=== PATIENT | female | born 1990 | race Two or more races ===

== ENCOUNTER → 2023-04-15 08:02 | Outpatient (REF) | payer OTHER, SELFPAY | LOC: PNTC 08:02 | PROVIDERS: ATTENDING PHYSICIAN Obstetrics & Gynecology | DX: O30.009 Twin pregnancy, unspecified number of placenta and unspecified number of amniotic sacs, unspecified trimester (principal) | CPT/HCPCS: 76801; 76802; 76813; 76814 ==

== ENCOUNTER → 2023-05-29 09:01 | Outpatient (REF) | payer OTHER, SELFPAY | LOC: PNTC 09:01 | PROVIDERS: ATTENDING PHYSICIAN Obstetrics & Gynecology | DX: Z34.82 Encounter for supervision of other normal pregnancy, second trimester (principal) | CPT/HCPCS: 76805; 76810; 76820; 76821 ==

== ENCOUNTER → 2023-06-12 09:00 | Outpatient (REF) | payer OTHER, SELFPAY | LOC: PNTC 09:00 | PROVIDERS: ATTENDING PHYSICIAN Obstetrics & Gynecology | DX: O30.039 Twin pregnancy, monochorionic/diamniotic, unspecified trimester (principal) | CPT/HCPCS: 76815; 76820; 76821 ==

== ENCOUNTER → 2023-06-30 13:32 | Outpatient (REF) | payer OTHER, SELFPAY | LOC: PNTC 13:32 | PROVIDERS: ATTENDING PHYSICIAN Obstetrics & Gynecology | DX: O30.039 Twin pregnancy, monochorionic/diamniotic, unspecified trimester (principal) | CPT/HCPCS: 76811; 76812; 76820; 76821 ==

== ENCOUNTER → 2023-07-09 11:48 | Outpatient (REF) | payer OTHER, SELFPAY | LOC: PNTC 11:48 | PROVIDERS: ATTENDING PHYSICIAN Obstetrics & Gynecology | DX: O36.8190 Decreased fetal movements, unspecified trimester, not applicable or unspecified (principal); O30.049 Twin pregnancy, dichorionic/diamniotic, unspecified trimester | CPT/HCPCS: 76815 ==

== ENCOUNTER → 2023-07-14 14:30 | Outpatient (REF) | payer OTHER, SELFPAY | LOC: PNTC 14:30 | PROVIDERS: ATTENDING PHYSICIAN Obstetrics & Gynecology | DX: O30.039 Twin pregnancy, monochorionic/diamniotic, unspecified trimester (principal) | CPT/HCPCS: 76815; 76820; 76821 ==

== ENCOUNTER → 2023-07-29 14:21 | Outpatient (REF) | payer OTHER, SELFPAY | LOC: PNTC 14:21 | PROVIDERS: ATTENDING PHYSICIAN Obstetrics & Gynecology | DX: O30.039 Twin pregnancy, monochorionic/diamniotic, unspecified trimester (principal); O14.00 Mild to moderate pre-eclampsia, unspecified trimester | CPT/HCPCS: 76816; 76820; 76821 ==

== ENCOUNTER → 2023-08-12 08:52 | Outpatient (REF) | payer OTHER, SELFPAY | LOC: PNTC 08:52 | PROVIDERS: ATTENDING PHYSICIAN Obstetrics & Gynecology | DX: O30.039 Twin pregnancy, monochorionic/diamniotic, unspecified trimester (principal); Z36.82 Encounter for antenatal screening for nuchal translucency | CPT/HCPCS: 76815; 76820; 76821 ==

== ENCOUNTER → 2023-08-26 09:27 | Outpatient (REF) | payer OTHER, SELFPAY | LOC: PNTC 09:27 | PROVIDERS: ATTENDING PHYSICIAN Obstetrics & Gynecology | DX: O30.039 Twin pregnancy, monochorionic/diamniotic, unspecified trimester (principal) | CPT/HCPCS: 76816; 76820; 76821 ==

== ENCOUNTER → 2023-09-09 13:49 | Outpatient (REF) | payer OTHER, SELFPAY | LOC: PNTC 13:49 | PROVIDERS: ATTENDING PHYSICIAN Obstetrics & Gynecology | DX: O30.039 Twin pregnancy, monochorionic/diamniotic, unspecified trimester (principal); O35.8XX0 Maternal care for other (suspected) fetal abnormality and damage, not applicable or unspecified | CPT/HCPCS: 59025; 76815; 76820; 76821 ==

== ENCOUNTER → 2023-09-16 13:56 | Outpatient (REF) | payer OTHER, SELFPAY | LOC: PNTC 13:56 | PROVIDERS: ATTENDING PHYSICIAN Obstetrics & Gynecology | DX: O30.039 Twin pregnancy, monochorionic/diamniotic, unspecified trimester (principal) | CPT/HCPCS: 59025; 76815 ==

== ENCOUNTER 2023-09-23 11:37 | Observation (INO) | payer OTHER, SELFPAY ==
[2023-09-23 11:45] VITALS: BP 148/100; BMI 30.1
[2023-09-23 12:42] LABS: Hematocrit 26.5 % (37.0-47.0); Hemoglobin 8.7 g/dL (12.0-16.0); Mean Corp Hgb Conc. 32.8 g/dL (33.0-37.0); Mean Corpuscular Hgb 28.1 pg (27.0-31.0); Mean Corpuscular Volume 85.5 fL (81.0-99.0); Mean Platelet Volume 12.9 fL (7.4-10.4); Platelet Count 130 10^3/uL (130-400); Red Cell Dist. Width 14.4 % (11.5-14.5); White Blood Cell Count 7.9 10^3/uL (4.8-10.8)
[2023-09-23 13:25] LABS: Protein/creatinine Ratio 0.2; Urine Protein 53 mg/dl
[2023-09-23 13:42] LABS: ALT (SGPT) 16 U/L (0-35); AST (SGOT) 27 U/L (14-36); Albumin 3.1 g/dl (3.5-5.0); Alkaline Phosphatase 134 U/L (38-126); Blood Urea Nitrogen 10 mg/dl (7-17); Carbon Dioxide 23 mmol/L (22-30); Chloride 107 mmol/L (98-107); Estimated Creatinine Clearance 112 ml/min; Glucose 90 mg/dl (70-99); Potassium 4.6 mmol/L (3.5-5.1); Sodium 134 mmol/L (135-145); Total Bilirubin 0.4 mg/dl (0.2-1.3); Total Protein 5.7 g/dl (6.3-8.2); eGFR > 60.00
== END 2023-09-23 15:02 | disposition home or self-care (01) ==
LOC: LDRP 11:37
PROVIDERS: Obstetrics & Gynecology; ADMITTING PHYSICIAN Obstetrics & Gynecology
DX: O10.013 Pre-existing essential hypertension complicating pregnancy, third trimester (principal); O30.033 Twin pregnancy, monochorionic/diamniotic, third trimester; Z3A.34 34 weeks gestation of pregnancy; O99.013 Anemia complicating pregnancy, third trimester; D64.9 Anemia, unspecified; O99.113 Other diseases of the blood and blood-forming organs and certain disorders involving the immune mechanism complicating pregnancy, third trimester; D69.6 Thrombocytopenia, unspecified
CPT/HCPCS: 59025; 76816; 76820; 76821; 80053; 82570; 84156; 85027; 86850; 86900; 86901; G0378

== ENCOUNTER 2023-09-24 07:28 | Observation (INO) | payer OTHER, SELFPAY ==
[2023-09-24 08:14] VITALS: BP 127/85; BMI 30.1
[2023-09-24 08:18] LABS: ALT (SGPT) 17 U/L (0-35); AST (SGOT) 30 U/L (14-36); Albumin 3.1 g/dl (3.5-5.0); Alkaline Phosphatase 130 U/L (38-126); Blood Urea Nitrogen 8 mg/dl (7-17); Calcium 8.6 mg/dl (8.4-10.2); Carbon Dioxide 20 mmol/L (22-30); Chloride 108 mmol/L (98-107); Glucose 123 mg/dl (70-99); Potassium 3.9 mmol/L (3.5-5.1); Sodium 134 mmol/L (135-145); Total Bilirubin 0.5 mg/dl (0.2-1.3); Total Protein 5.7 g/dl (6.3-8.2); Uric Acid 5.8 mg/dl (2.5-6.2); eGFR > 60.00
[2023-09-24 08:18] LABS: Urine Albumin 1+ (Neg - Trace); Urine Bilirubin Negative (Negative); Urine Character Clear (Clear); Urine Color Yellow; Urine Glucose Negative (Negative); Urine Ketone Negative (Negative); Urine Leukocyte Negative (Negative); Urine Nitrite Negative (Negative); Urine Occult Blood Negative (Negative); Urine Urobilinogen Negative (Neg - 1+)
[2023-09-24 08:19] LABS: % Basophils 0.1 % (0-2); % Eosinophils 0.8 % (0-6); % Immature Granulocytes 0.7 % (0-0.5); % Lymphocytes 28.6 % (20.5-51.1); % Monocytes 5.4 % (1.7-9.3); % Neutrophils 64.4 % (42.2-75.2); Absolute Eosinophils 0.1 10^3/uL (0-0.7); Absolute Immature Granulocytes 0.1 10^3/uL (0-0.05); Absolute Lymphocytes 2.1 10^3/uL (1.2-3.4); Absolute Monocytes 0.4 10^3/uL (0.1-0.6); Absolute Neutrophils 4.6 10^3/uL (1.4-6.5); Hematocrit 27.4 % (37.0-47.0); Hemoglobin 8.8 g/dL (12.0-16.0); Mean Corp Hgb Conc. 32.1 g/dL (33.0-37.0); Mean Corpuscular Hgb 27.2 pg (27.0-31.0); Mean Corpuscular Volume 84.6 fL (81.0-99.0); Nucleated Red Blood Cells % 0.3 %; Red Blood Cell Count 3.24 10^6/uL (4.20-5.40); Red Cell Dist. Width 14.5 % (11.5-14.5); White Blood Cell Count 7.2 10^3/uL (4.8-10.8)
[2023-09-24 09:12] LABS: Urine Bacteria Moderate (Negative); Urine Mucus Moderate; Urine Red Blood Cell 0-2 /HPF (0-2); Urine Squamous Cell 26-30 /LPF (Few)
[2023-09-24 09:18] LABS: Platelet Count 104 10^3/uL (130-400)
[2023-09-24 09:19] LABS: Mean Platelet Volume 12.8 fL (7.4-10.4)
[2023-09-24 09:37] LABS: Protein/creatinine Ratio 1.2; Urine Protein 180 mg/dl
--- NOTE | 2023-09-24 09:56 | W.PN.UPDATE ---
Update Note
Progress Note Update
Patient at [facility] for NST for mono/di twins at 34+2wks, and pre-eclampsia. Had elevated BPs yesterday and was evaluated on L&D at that time. Labs were significant for slightly decreased urine pr:cr 1.2. Growth scan was done and twin A was breech,
weighing 2077gm, 36th percentile, and twin B was transverse, weighing 2159gm, 43rd percentile. Fluid normal. She was asked to stay for continued observation and BTMZ for FLM, but left AMA.
Today, I was called by the RN in [facility] because repeat labs today were significant for PLTs dropping from 130K yesterday to 104K today. Otherwise labs were stable/wnl. BPs were 126-143/83-93. Of note, pt was delivered at 31wks via for
'elevated BPs and low platelets' in last (at [facility]).
I asked for patient to come immediately to L&D for additional observation, probable delivery if there is concern for HELLP syndrome. Patient refuses to come to L&D and would like to go home because she has to figure out childcare help and care for
her dog. Her is working far from this location.
I spoke with patient on the phone at length today. She denies MARADIAGA, visual sx or abdominal pain. She feels 'really good.' I counseled her that I have suspicion that she has HELLP syndrome, and counseled her regarding the risks if she should leave
against medical advice, which include potential catastrophic event that could result in permanent injury or even to the patient, or one or both babies. I also told her that if delivery becomes necessary (a very strong possibility) and her PLTs
drop more, she may not be able to have under regional anesthesia. I strongly urged her to come directly to L&D. She expressed understanding of risks and continues to want to leave against medical advice. She agrees to come back to the
hospital either later tonight or tomorrow morning as soon as she is able to get her child and pet care in order, or sooner if she should feel unwell or have sx of pre-e. She also agrees to at least have a steroid injection for FLM prior to leaving
today-- BTMZ 12mg IM ordered. I advised her to stay NPO for several hours prior to coming back if possible. AMA paperwork signed.
Luan Marinelli DO
30min spent counseling and coordinating care.
[2023-09-24] MEDS: CELESTONE SOLUSPAN 2 MG IM (10:01)
== END 2023-09-24 10:05 | disposition left against medical advice (07) ==
LOC: PNTC-IN 07:28
PROVIDERS: ADMITTING PHYSICIAN Obstetrics & Gynecology
DX: O11.3 Pre-existing hypertension with pre-eclampsia, third trimester (principal); O10.013 Pre-existing essential hypertension complicating pregnancy, third trimester; Z3A.34 34 weeks gestation of pregnancy; O99.113 Other diseases of the blood and blood-forming organs and certain disorders involving the immune mechanism complicating pregnancy, third trimester; D69.6 Thrombocytopenia, unspecified
CPT/HCPCS: 80053; 81003; 81015; 82570; 84156; 84550; 85025; G0378